=== PATIENT | female | born 1955 | race African-American/Black ===

== ENCOUNTER 2019-07-30 14:07 | Inpatient (IN) | payer MEDICARE ==
[~2019-07-30] VITALS: Ht 165.1 cm; Wt 67.6 kg
[2019-07-30] MEDS ORDERED: ASPIRIN 81MG TABLET PO ONE (14:15)
[2019-07-30 14:36] LABS: MEAN CORPUSCULAR VOLUME 57.6 fL (81.0-99.0); MEAN PLATELET VOLUME 9.2 fl (7.4-10.4); PLATELET 503 x1000/uL (130-400); RED BLOOD CELL COUNT 2.82 mill/uL (4.2-5.4); RED CELL DISTRIBUTION WIDTH 23.7 % (11.6-14.6)
[2019-07-30 14:39] LABS: BG BASE EXCESS -11.3 mmol/L (-2.0-2.0); BG BILEVEL POS AIRWAY PRESSURE 15/5; BG DEOXYHEMOGLOBIN 2.3 % (0.0-5.0); BG FRACTION INSPIRED OXYGEN 50; BG HCO3 ACT 14.5 mmol/L (22.0-26.0); BG METHEMOGLOBIN 0.3 % (0.0-1.5); BG OXYGEN SATURATION 97.7 % (92.0-98.5); BG OXYHEMOGLOBIN 96.4 % (94.0-97.0); BG PH 7.275 (7.350-7.450); BG PO2 114.9 mmHg (75.0-100.0); BG SAMPLE SITE RIGHT BRACHIAL; BG TOTAL HEMOGLOBIN 4.7 g/dL (12.0-18.0); BG VENT MODE MASK - BIPAP
[2019-07-30 14:41] LABS: CHLORIDE 111 mEq/L (98-107); PARTIAL THROMBOPLASTIN TIME 20.4 sec (23.4-31.0); PROTHROMBIN TIME 10.5 sec (9.6-11.0)
[2019-07-30 14:48] LABS: ETHANOL BLOOD < 10 mg/dL
[2019-07-30 14:50] LABS: HEMOGLOBIN. 4.2 g/dL (12.0-16.0)
[2019-07-30 14:51] LABS: HEMATOCRIT. 16.3 % (36.0-48.0)
[2019-07-30 15:27] LABS: NUCLEATED RED BLOOD CELLS 1 /100 WBC; PLATELET ESTIMATE INCREASED
[2019-07-30] MEDS ORDERED: HYDRALAZINE 20MG/ML VIAL IV ONE (17:30)
[2019-07-30 22:00] VITALS: BP 170/95
[2019-07-30] MEDS ORDERED: MAGNESIUM/ALUMINUM HYDROXIDE/SIMETHICONE 30ML UDC PO PRN (22:30)
[2019-07-30] MEDS ORDERED: FUROSEMIDE 40MG/4ML VIAL IVP NR (22:30)
[2019-07-30] MEDS ORDERED: HYDROCODONE/ACETAMINOPHEN 5/325MG TABLET PO PRN (22:30)
[2019-07-30] MEDS ORDERED: GUAIFENESIN 200MG/10ML SUGAR FREE UDC PO PRN (22:30)
[2019-07-30] MEDS ORDERED: DIPHENHYDRAMINE 50MG/ML VIAL IV PRN (22:30)
[2019-07-30] MEDS ORDERED: ACETAMINOPHEN 325MG TABLET PO PRN (22:30)
[2019-07-30] MEDS ORDERED: ACETAMINOPHEN 650MG/20.3ML UDC GT PRN (22:30)
[2019-07-30] MEDS ORDERED: DEXTROSE 50% WATER 50ML SYRINGE IV PRN (22:30)
[2019-07-30] MEDS ORDERED: DOCUSATE SODIUM 100MG CAPSULE PO PRN (22:30)
[2019-07-30] MEDS ORDERED: NA PHOS,M-B/NA PHOS,DI-BA ENEMA 118ML PR PRN (22:30)
[2019-07-30] MEDS ORDERED: ONDANSETRON HCL 4MG/2ML INJ IV PRN (22:30)
[2019-07-30] MEDS ORDERED: ACETAMINOPHEN 650MG SUPP PR PRN (22:30)
[2019-07-30] MEDS ORDERED: NITROGLYCERIN OINT 1GM/INCH UDPKT TD ONE (22:40)
[2019-07-30] MEDS ORDERED: CEFTRIAXONE 1 G PREMIX 50 ML IV SCH (22:45)
[2019-07-30] MEDS ORDERED: AZITHROMYCIN 500 MG in DEXT 5% WATER 250 ML IV SCH (22:45)
[2019-07-30] MEDS: IPRATROPIUM BROMIDE (0.02%) 0.5MG/2.5ML NEB HHN SCH (22:58)
[2019-07-30] MEDS ORDERED: ETOMIDATE 2MG/ML 10ML VIAL IV ONE (23:00)
[2019-07-30] MEDS ORDERED: SUCCINYLCHOLINE CHLORIDE 200MG/10ML IV ONE (23:00)
[2019-07-30 23:01] VITALS: BP 187/113
[2019-07-30] MEDS ORDERED: MIDAZOLAM HCL 2 MG/2 ML VIAL IV NR (23:15)
[2019-07-30] MEDS ORDERED: MIDAZOLAM HCL 2 MG/2 ML VIAL ONE (23:15)
[2019-07-30 23:17] LABS: TOTAL IRON BINDING CAPACITY 423 ug/dL (250-450)
[2019-07-30] MEDS ORDERED: LORAZEPAM 2MG/ML CPJ ONE (23:30)
[2019-07-30] MEDS ORDERED: MIDAZOLAM HCL 5 MG/ML VIAL IV ONE (23:30)
[2019-07-30] MEDS ORDERED: NITROPRUSSIDE 100 MG in DEXT 5% WATER 250 ML IV PRN (23:30)
[2019-07-31] VITALS (91 sets, daily range): BP systolic 76–140; BP diastolic 39–86
[2019-07-31] MEDS ORDERED: SODIUM BICARBONATE 50 MEQ in SODIUM CHLORIDE 0.45% 1,000 ML IV SCH ×2
[2019-07-31] MEDS ORDERED: AZITHROMYCIN 500 MG in DEXT 5% WATER 250 ML IV SCH ×2
[2019-07-31 00:48] LABS: BG BASE EXCESS -9.5 mmol/L (-2.0-2.0); BG CARBOXYHEMOGLOBIN 0.8 % (0.5-1.5); BG DEOXYHEMOGLOBIN 0.3 % (0.0-5.0); BG FRACTION INSPIRED OXYGEN 100; BG HCO3 ACT 17.1 mmol/L (22.0-26.0); BG METHEMOGLOBIN 0.4 % (0.0-1.5); BG OXYGEN SATURATION 99.7 % (92.0-98.5); BG OXYHEMOGLOBIN 98.5 % (94.0-97.0); BG PCO2 41.5 mmHg (35.0-45.0); BG PH 7.234 (7.350-7.450); BG PIP 36 cmH2O; BG PO2 296.4 mmHg (75.0-100.0); BG SAMPLE SITE RIGHT BRACHIAL; BG TIDAL VOLUME(mL) 500 mL; BG TOTAL HEMOGLOBIN 5.8 g/dL (12.0-18.0); BG VENT MODE VENT - A/C; BG VENT RATE 16 set
[2019-07-31] MEDS ORDERED: CEFTRIAXONE 1 G PREMIX 50 ML IV SCH (01:00)
[2019-07-31] MEDS: FENTANYL CITRATE/PF 500 MCG in SODIUM CHLORIDE 0.9% 40 ML IV PRN (01:38)
[2019-07-31] MEDS: MIDAZOLAM HCL 100 MG in DEXT 5% WATER 80 ML IV PRN ×2 (01:39→07:38)
[2019-07-31 02:55] LABS: CLARITY URINE CLOUDY (CLEAR); COLOR URINE YELLOW (YELLOW); KETONES URINE NEGATIVE (NEGATIVE); LEUKOCYTE ESTERASE URINE NEGATIVE (NEGATIVE); NITRITE URINE NEGATIVE (NEGATIVE); OCCULT BLOOD URINE TRACE (NEGATIVE); PROTEIN URINE TRACE (NEGATIVE); SPECIFIC GRAVITY URINE 1.012 (1.005-1.030); UROBILINOGEN URINE 0.2 E.U./dL (0.2-1.0)
[2019-07-31 03:40] LABS: *AMPHETAMINES SCREEN URINE NEGATIVE (NEGATIVE); *BARBITURATES SCREEN URINE NEGATIVE (NEGATIVE); *BENZODIAZEPINES SCREEN URINE PRESUMTIVE POSITIVE (NEGATIVE); *COCAINE SCREEN URINE NEGATIVE (NEGATIVE)
[2019-07-31 03:41] LABS: CANNABINOID URINE SCREEN NEGATIVE (NEGATIVE); METHADONE URINE SCREEN NEGATIVE (NEGATIVE); OPIATES URINE SCREEN NEGATIVE (NEGATIVE); PHENCYCLIDINE URINE SCREEN NEGATIVE (NEGATIVE)
[2019-07-31] MEDS: SODIUM CHLORIDE 0.9% INJ 3ML FLUSH IVF SCH ×3 (06:25→21:17)
[2019-07-31] MEDS: BLOOD SUGAR DIAGNOSTIC STRIP TEST SCH ×4 (06:25→21:31)
[2019-07-31] MEDS: INSULIN LISPRO 100 UNITS/ML SUBCUT SCH ×4 (06:25→21:00)
[2019-07-31 07:45] LABS: BG BASE EXCESS -9.3 mmol/L (-2.0-2.0); BG CARBOXYHEMOGLOBIN 0.6 % (0.5-1.5); BG DEOXYHEMOGLOBIN 1.3 % (0.0-5.0); BG FRACTION INSPIRED OXYGEN 60; BG METHEMOGLOBIN 0.7 % (0.0-1.5); BG OXYGEN SATURATION 98.7 % (92.0-98.5); BG OXYHEMOGLOBIN 97.4 % (94.0-97.0); BG PCO2 32.4 mmHg (35.0-45.0); BG PH 7.312 (7.350-7.450); BG PO2 161.5 mmHg (75.0-100.0); BG SAMPLE SITE RIGHT BRACHIAL; BG TIDAL VOLUME(mL) 500 mL; BG TOTAL HEMOGLOBIN 6.7 g/dL (12.0-18.0); BG VENT MODE VENT - A/C; BG VENT RATE 18 set
[2019-07-31] MEDS: IPRATROPIUM BROMIDE (0.02%) 0.5MG/2.5ML NEB HHN SCH ×3 (08:32→20:08)
[2019-07-31] MEDS ORDERED: FUROSEMIDE 40MG/4ML VIAL IVP SCH (09:00)
[2019-07-31] MEDS: FAMOTIDINE 20MG/2ML VIAL IV SCH (09:07)
[2019-07-31 10:05] LABS: MEAN CORPUSCULAR HEMOGLOBIN 19.5 pg (28.0-32.0); MEAN CORPUSCULAR VOLUME 67.3 fL (81.0-99.0); MEAN PLATELET VOLUME 8.9 fl (7.4-10.4); PLATELET 272 x1000/uL (130-400); RED BLOOD CELL COUNT 3.12 mill/uL (4.2-5.4); RED CELL DISTRIBUTION WIDTH 34.4 % (11.6-14.6)
[2019-07-31 10:12] LABS: CHLORIDE 111 mEq/L (98-107)
[2019-07-31 10:15] LABS: HEMOGLOBIN. 6.1 g/dL (12.0-16.0)
[2019-07-31 10:19] LABS: LDL CHOLESTEROL 61 mg/dL (5-100)
[2019-07-31 10:20] LABS: HDL CHOLESTEROL 33 mg/dL (40-59); T4 FREE 1.37 ng/dL (0.76-1.46)
[2019-07-31] MEDS ORDERED: LIDOCAINE HCL 1% 20ML VIAL (Pyxis) INJ ONE (10:37)
[2019-07-31 10:44] LABS: PLATELET ESTIMATE NORMAL
[2019-07-31] MEDS: DEXT 5%/0.45% NACL 1000ML 1,000 ML IV SCH (11:41)
[2019-07-31] MEDS: PIPERACILLIN/TAZOBACTAM 2.25 G in DEXTROSE 5% WATER 50 ML IV SCH ×3 (12:22→23:41)
[2019-07-31] MEDS ORDERED: VANCOMYCIN 1500MG in DEXTROSE 5% WATER 250ML IV SCH (13:00)
[2019-07-31] MEDS ORDERED: SODIUM BICARBONATE 4% (2.4MEQ) 5ML VIAL IV ONE (13:10)
[2019-07-31] MEDS ORDERED: PHENYLEPHRINE 40 MG in DEXT 5% WATER 246 ML IV PRN (14:15)
[2019-07-31 17:37] LABS: BASOPHILS % 0.1 % (0.0-2.0); EOSINOPHILS % 0.1 % (0.0-5.0); HEMATOCRIT. 23.3 % (36.0-48.0); HEMOGLOBIN. 7.1 g/dL (12.0-16.0); LYMPHOCYTES % 7.8 % (20.0-50.0); MEAN CORPUSCULAR HEMOGLOBIN 21.3 pg (28.0-32.0); MEAN CORPUSCULAR VOLUME 70.4 fL (81.0-99.0); MEAN PLATELET VOLUME 8.9 fl (7.4-10.4); PLATELET 228 x1000/uL (130-400); RED BLOOD CELL COUNT 3.31 mill/uL (4.2-5.4); RED CELL DISTRIBUTION WIDTH 35.9 % (11.6-14.6)
[2019-07-31 17:47] LABS: CHLORIDE 110 mEq/L (98-107)
[2019-07-31 17:56] LABS: CREATINE KINASE 79 IU/L (26-192)
[2019-07-31 17:58] LABS: CREATINE KINASE MB FRACTION 1.6 ng/mL (0.5-3.6); PLATELET ESTIMATE NORMAL
[2019-07-31] MEDS: NITROGLYCERIN 0.1MG/HR PATCH TOP SCH (22:15)
[2019-08-01] VITALS (90 sets, daily range): BP systolic 102–144; BP diastolic 53–82
[2019-08-01 01:43] LABS: CREATINE KINASE 82 IU/L (26-192)
[2019-08-01 01:44] LABS: CREATINE KINASE MB FRACTION < 1.0 ng/mL (0.5-3.6)
[2019-08-01] MEDS ORDERED: NITROPRUSSIDE 100 MG in DEXT 5% WATER 246 ML IV PRN (02:15)
[2019-08-01] MEDS: IPRATROPIUM BROMIDE (0.02%) 0.5MG/2.5ML NEB HHN SCH ×4 (02:17→20:21)
[2019-08-01] MEDS: PIPERACILLIN/TAZOBACTAM 2.25 G in DEXTROSE 5% WATER 50 ML IV SCH ×4 (05:48→23:03)
[2019-08-01] MEDS: SODIUM CHLORIDE 0.9% INJ 3ML FLUSH IVF SCH ×3 (05:48→21:02)
[2019-08-01 05:52] LABS: BASOPHILS % 0.3 % (0.0-2.0); HEMATOCRIT. 22.9 % (36.0-48.0); LYMPHOCYTES % 11.8 % (20.0-50.0); MEAN CORPUSCULAR HEMOGLOBIN 21.6 pg (28.0-32.0); MEAN CORPUSCULAR VOLUME 70.4 fL (81.0-99.0); MONOCYTES % 8.9 % (2.0-8.0); RED BLOOD CELL COUNT 3.25 mill/uL (4.2-5.4)
[2019-08-01 06:06] LABS: CHLORIDE 112 mEq/L (98-107)
[2019-08-01 06:12] LABS: PHOSPHORUS 4.3 mg/dL (2.5-4.9)
[2019-08-01 06:16] LABS: CREATINE KINASE 82 IU/L (26-192)
[2019-08-01 06:18] LABS: CREATINE KINASE MB FRACTION < 1.0 ng/mL (0.5-3.6)
[2019-08-01] MEDS: BLOOD SUGAR DIAGNOSTIC STRIP TEST SCH ×4 (06:30→21:02)
[2019-08-01] MEDS: INSULIN LISPRO 100 UNITS/ML SUBCUT SCH ×4 (07:00→21:00)
[2019-08-01 08:03] LABS: BG BASE EXCESS -4.5 mmol/L (-2.0-2.0); BG CARBOXYHEMOGLOBIN 0.3 % (0.5-1.5); BG DEOXYHEMOGLOBIN 1.3 % (0.0-5.0); BG HCO3 ACT 19.4 mmol/L (22.0-26.0); BG METHEMOGLOBIN 0.3 % (0.0-1.5); BG OXYGEN SATURATION 98.7 % (92.0-98.5); BG OXYHEMOGLOBIN 98.1 % (94.0-97.0); BG PCO2 30.7 mmHg (35.0-45.0); BG PH 7.419 (7.350-7.450); BG SAMPLE SITE RIGHT BRACHIAL; BG TIDAL VOLUME(mL) 500 mL; BG TOTAL HEMOGLOBIN 7.4 g/dL (12.0-18.0); BG VENT MODE VENT - A/C; BG VENT RATE 18 set
[2019-08-01 09:28] LABS: MEAN PLATELET VOLUME 9.1 fl (7.4-10.4); PLATELET 200 x1000/uL (130-400)
[2019-08-01] MEDS: FAMOTIDINE 20MG/2ML VIAL IV SCH (09:37)
[2019-08-01] MEDS: FENTANYL CITRATE/PF 500 MCG in SODIUM CHLORIDE 0.9% 40 ML IV PRN (14:58)
[2019-08-01] MEDS ORDERED: VANCOMYCIN 1 G PREMIX 200 ML IV SCH (15:00)
[2019-08-01] MEDS: DEXT 5%/0.45% NACL 1000ML 1,000 ML IV SCH (18:43)
[2019-08-01 20:57] LABS: CREATINE KINASE 68 IU/L (26-192)
[2019-08-01] MEDS: NITROGLYCERIN 0.1MG/HR PATCH TOP SCH (21:05)
[2019-08-02] VITALS (97 sets, daily range): BP systolic 115–176; BP diastolic 43–103
[2019-08-02] MEDS: IPRATROPIUM BROMIDE (0.02%) 0.5MG/2.5ML NEB HHN SCH ×4 (01:47→20:26)
[2019-08-02] MEDS: INSULIN LISPRO 100 UNITS/ML SUBCUT SCH ×4 (05:12→17:58)
[2019-08-02] MEDS: BLOOD SUGAR DIAGNOSTIC STRIP TEST SCH ×4 (05:12→17:58)
[2019-08-02] MEDS: PIPERACILLIN/TAZOBACTAM 2.25 G in DEXTROSE 5% WATER 50 ML IV SCH ×3 (05:12→17:58)
[2019-08-02] MEDS: SODIUM CHLORIDE 0.9% INJ 3ML FLUSH IVF SCH ×3 (05:12→21:20)
[2019-08-02 05:39] LABS: HEMATOCRIT. 22.5 % (36.0-48.0); MEAN CORPUSCULAR HEMOGLOBIN 21.6 pg (28.0-32.0); MEAN CORPUSCULAR VOLUME 69.8 fL (81.0-99.0); MEAN PLATELET VOLUME 8.6 fl (7.4-10.4); PLATELET 165 x1000/uL (130-400); RED BLOOD CELL COUNT 3.22 mill/uL (4.2-5.4); RED CELL DISTRIBUTION WIDTH 36.5 % (11.6-14.6)
[2019-08-02 05:53] LABS: CHLORIDE 116 mEq/L (98-107)
[2019-08-02 05:59] LABS: PHOSPHORUS 3.3 mg/dL (2.5-4.9)
[2019-08-02 08:28] LABS: BG BASE EXCESS -4.5 mmol/L (-2.0-2.0); BG CARBOXYHEMOGLOBIN 1.1 % (0.5-1.5); BG DEOXYHEMOGLOBIN 1.3 % (0.0-5.0); BG FRACTION INSPIRED OXYGEN 35; BG HCO3 ACT 19.3 mmol/L (22.0-26.0); BG METHEMOGLOBIN 0.7 % (0.0-1.5); BG OXYGEN SATURATION 98.7 % (92.0-98.5); BG OXYHEMOGLOBIN 96.9 % (94.0-97.0); BG PCO2 30.3 mmHg (35.0-45.0); BG PH 7.423 (7.350-7.450); BG PO2 142.1 mmHg (75.0-100.0); BG SAMPLE SITE RIGHT RADIAL; BG TIDAL VOLUME(mL) 500 mL; BG TOTAL HEMOGLOBIN 7.5 g/dL (12.0-18.0); BG VENT MODE VENT - A/C; BG VENT RATE 18 set
[2019-08-02 09:38] LABS: PLATELET ESTIMATE NORMAL
[2019-08-02] MEDS: FAMOTIDINE 20MG/2ML VIAL IV SCH (09:46)
[2019-08-02] MEDS: VANCOMYCIN 1 G PREMIX 200 ML IV SCH (14:10)
[2019-08-02] MEDS ORDERED: POTASSIUM CHLORIDE 20MEQ/PACKET PO NR (16:30)
[2019-08-02] MEDS: FENTANYL CITRATE/PF 500 MCG in SODIUM CHLORIDE 0.9% 40 ML IV PRN (17:59)
[2019-08-02] MEDS: NITROGLYCERIN 0.1MG/HR PATCH TOP SCH (21:19)
[2019-08-03] VITALS (98 sets, daily range): BP systolic 125–174; BP diastolic 66–125
[2019-08-03] MEDS: PIPERACILLIN/TAZOBACTAM 2.25 G in DEXTROSE 5% WATER 50 ML IV SCH ×4 (00:32→17:18)
[2019-08-03] MEDS: INSULIN LISPRO 100 UNITS/ML SUBCUT SCH ×4 (00:33→17:15)
[2019-08-03] MEDS: BLOOD SUGAR DIAGNOSTIC STRIP TEST SCH ×4 (00:33→17:14)
[2019-08-03] MEDS: IPRATROPIUM BROMIDE (0.02%) 0.5MG/2.5ML NEB HHN SCH ×4 (01:54→20:59)
[2019-08-03] MEDS: DEXT 5%/0.45% NACL 1000ML 1,000 ML IV SCH (01:56)
[2019-08-03] MEDS: SODIUM CHLORIDE 0.9% INJ 3ML FLUSH IVF SCH ×3 (05:30→21:06)
[2019-08-03] MEDS: FAMOTIDINE 20MG/2ML VIAL IV SCH (08:22)
[2019-08-03 08:23] LABS: BG CARBOXYHEMOGLOBIN 0.2 % (0.5-1.5); BG DEOXYHEMOGLOBIN 1.6 % (0.0-5.0); BG FRACTION INSPIRED OXYGEN 35; BG HCO3 ACT 21.4 mmol/L (22.0-26.0); BG METHEMOGLOBIN 0.6 % (0.0-1.5); BG OXYGEN SATURATION 98.4 % (92.0-98.5); BG OXYHEMOGLOBIN 97.6 % (94.0-97.0); BG PCO2 35.3 mmHg (35.0-45.0); BG PH 7.401 (7.350-7.450); BG PO2 132.2 mmHg (75.0-100.0); BG PRESSURE SUPPORT 12; BG SAMPLE SITE RIGHT RADIAL; BG TIDAL VOLUME(mL) 500 mL; BG TOTAL HEMOGLOBIN 8.2 g/dL (12.0-18.0); BG VENT MODE VENT - SIMV; BG VENT RATE 8 set
[2019-08-03] MEDS ORDERED: POTASSIUM CHLORIDE 20MEQ/PACKET PO SCH (08:30)
[2019-08-03] MEDS ORDERED: AMLODIPINE 2.5MG TABLET PO SCH (09:00)
[2019-08-03] MEDS: VANCOMYCIN 1 G PREMIX 200 ML IV SCH (13:33)
[2019-08-03] MEDS: CLONIDINE 0.1MG TABLET PO PRN (16:16)
[2019-08-03] MEDS: FENTANYL CITRATE/PF 500 MCG in SODIUM CHLORIDE 0.9% 40 ML IV PRN (16:25)
[2019-08-03] MEDS: NITROGLYCERIN 0.1MG/HR PATCH TOP SCH (21:09)
[2019-08-04] VITALS (54 sets, daily range): BP systolic 133–169; BP diastolic 70–106
[2019-08-04] MEDS: BLOOD SUGAR DIAGNOSTIC STRIP TEST SCH ×6 (00:09→20:53)
[2019-08-04] MEDS: PIPERACILLIN/TAZOBACTAM 2.25 G in DEXTROSE 5% WATER 50 ML IV SCH ×4 (00:15→18:46)
[2019-08-04] MEDS: IPRATROPIUM BROMIDE (0.02%) 0.5MG/2.5ML NEB HHN SCH ×4 (02:15→20:23)
[2019-08-04] MEDS: CLONIDINE 0.1MG TABLET PO PRN (03:54)
[2019-08-04 05:30] LABS: CHLORIDE 122 mEq/L (98-107)
[2019-08-04 05:33] LABS: HEMATOCRIT. 25.9 % (36.0-48.0); HEMOGLOBIN. 7.7 g/dL (12.0-16.0); MEAN CORPUSCULAR HEMOGLOBIN 21.6 pg (28.0-32.0); MEAN CORPUSCULAR VOLUME 72.9 fL (81.0-99.0); MEAN PLATELET VOLUME 8.6 fl (7.4-10.4); PLATELET 132 x1000/uL (130-400); RED BLOOD CELL COUNT 3.55 mill/uL (4.2-5.4); RED CELL DISTRIBUTION WIDTH 37.1 % (11.6-14.6)
[2019-08-04 05:36] LABS: PHOSPHORUS 2.6 mg/dL (2.5-4.9)
[2019-08-04] MEDS: INSULIN LISPRO 100 UNITS/ML SUBCUT SCH ×6 (06:00→20:53)
[2019-08-04] MEDS: SODIUM CHLORIDE 0.9% INJ 3ML FLUSH IVF SCH ×3 (06:09→21:16)
[2019-08-04] MEDS: FENTANYL CITRATE/PF 500 MCG in SODIUM CHLORIDE 0.9% 40 ML IV PRN (06:55)
[2019-08-04] MEDS: FAMOTIDINE 20MG/2ML VIAL IV SCH (09:00)
[2019-08-04] MEDS: AMLODIPINE 2.5MG TABLET PO SCH (09:09)
[2019-08-04] MEDS: DEXTROSE 5% WATER 1,000 ML IV SCH (09:10)
[2019-08-04 09:52] LABS: BG CARBOXYHEMOGLOBIN 0.1 % (0.5-1.5); BG DEOXYHEMOGLOBIN 2.3 % (0.0-5.0); BG FRACTION INSPIRED OXYGEN 30; BG HCO3 ACT 24.4 mmol/L (22.0-26.0); BG METHEMOGLOBIN 0.5 % (0.0-1.5); BG OXYGEN SATURATION 97.7 % (92.0-98.5); BG OXYHEMOGLOBIN 97.1 % (94.0-97.0); BG PH 7.415 (7.350-7.450); BG PRESSURE SUPPORT 8; BG SAMPLE SITE RIGHT RADIAL; BG TOTAL HEMOGLOBIN 8.5 g/dL (12.0-18.0); BG VENT MODE VENT - CPAP
[2019-08-04] MEDS: VANCOMYCIN 1 G PREMIX 200 ML IV SCH (11:52)
[2019-08-04 13:46] LABS: PLATELET ESTIMATE NORMAL
[2019-08-04] MEDS ORDERED: DEXTROSE 50% WATER 50ML SYRINGE IV PRN (18:15)
[2019-08-05] VITALS (21 sets, daily range): BP systolic 120–164; BP diastolic 50–106
[2019-08-05] MEDS: PIPERACILLIN/TAZOBACTAM 2.25 G in DEXTROSE 5% WATER 50 ML IV SCH ×5 (00:13→23:06)
[2019-08-05] MEDS: IPRATROPIUM BROMIDE (0.02%) 0.5MG/2.5ML NEB HHN SCH ×4 (01:54→20:31)
[2019-08-05 05:26] LABS: BASOPHILS % 0.8 % (0.0-2.0); EOSINOPHILS % 4.3 % (0.0-5.0); HEMATOCRIT. 23.9 % (36.0-48.0); HEMOGLOBIN. 7.2 g/dL (12.0-16.0); LYMPHOCYTES % 12.1 % (20.0-50.0); MEAN CORPUSCULAR HEMOGLOBIN 21.7 pg (28.0-32.0); MEAN CORPUSCULAR VOLUME 71.6 fL (81.0-99.0); MEAN PLATELET VOLUME 8.7 fl (7.4-10.4); MONOCYTES % 10.1 % (2.0-8.0); NEUTROPHILS % 72.7 % (40.0-76.0); PLATELET 108 x1000/uL (130-400); RED BLOOD CELL COUNT 3.33 mill/uL (4.2-5.4); RED CELL DISTRIBUTION WIDTH 37.2 % (11.6-14.6)
[2019-08-05] MEDS: SODIUM CHLORIDE 0.9% INJ 3ML FLUSH IVF SCH ×3 (05:26→21:48)
[2019-08-05] MEDS: DEXTROSE 5% WATER 1,000 ML IV SCH ×2 (05:37→18:13)
[2019-08-05 05:38] LABS: CHLORIDE 113 mEq/L (98-107)
[2019-08-05 05:50] LABS: PHOSPHORUS 2.5 mg/dL (2.5-4.9)
[2019-08-05] MEDS: INSULIN LISPRO 100 UNITS/ML SUBCUT SCH (06:07)
[2019-08-05] MEDS: BLOOD SUGAR DIAGNOSTIC STRIP TEST SCH (06:07)
[2019-08-05] MEDS: VANCOMYCIN 1 G PREMIX 200 ML IV SCH (06:13)
[2019-08-05] MEDS: AMLODIPINE 2.5MG TABLET PO SCH (08:30)
[2019-08-05] MEDS: FAMOTIDINE 20MG/2ML VIAL IV SCH (08:30)
[2019-08-05] MEDS ORDERED: DILTIAZEM HCL 300MG CAPSULE SR 24HR PO SCH (09:00)
[2019-08-05] MEDS: FAMOTIDINE 20MG TABLET PO SCH (20:39)
[2019-08-05] MEDS: CLONIDINE 0.1MG TABLET PO PRN (20:39)
[2019-08-06] VITALS: BP 133/79
[2019-08-06] MEDS: VANCOMYCIN 1 G PREMIX 200 ML IV SCH (00:42)
[2019-08-06] MEDS: IPRATROPIUM BROMIDE (0.02%) 0.5MG/2.5ML NEB HHN SCH ×4 (02:42→20:07)
[2019-08-06 04:00] VITALS: BP 128/77
[2019-08-06] MEDS: PIPERACILLIN/TAZOBACTAM 2.25 G in DEXTROSE 5% WATER 50 ML IV SCH ×4 (05:39→23:13)
[2019-08-06] MEDS: SODIUM CHLORIDE 0.9% INJ 3ML FLUSH IVF SCH ×3 (05:40→22:00)
[2019-08-06 08:00] VITALS: BP 157/85
[2019-08-06] MEDS: DILTIAZEM HCL 180MG CAPSULE CD 24HR PO SCH (08:45)
[2019-08-06 12:00] VITALS: BP 134/78
[2019-08-06 13:06] LABS: CHLORIDE 110 mEq/L (98-107)
[2019-08-06 13:09] LABS: BASOPHILS % 0.9 % (0.0-2.0); EOSINOPHILS % 4.8 % (0.0-5.0); LYMPHOCYTES % 14.7 % (20.0-50.0); MEAN CORPUSCULAR HEMOGLOBIN 21.7 pg (28.0-32.0); MEAN CORPUSCULAR VOLUME 70.8 fL (81.0-99.0); MEAN PLATELET VOLUME 8.7 fl (7.4-10.4); MONOCYTES % 8.2 % (2.0-8.0); NEUTROPHILS % 71.4 % (40.0-76.0); PLATELET 123 x1000/uL (130-400); RED BLOOD CELL COUNT 3.92 mill/uL (4.2-5.4); RED CELL DISTRIBUTION WIDTH 37.4 % (11.6-14.6)
[2019-08-06 13:10] LABS: HEMATOCRIT. 27.8 % (36.0-48.0); HEMOGLOBIN. 8.5 g/dL (12.0-16.0)
[2019-08-06] MEDS: DEXTROSE 5% WATER 1,000 ML IV SCH (15:17)
[2019-08-06 16:00] VITALS: BP 160/84
[2019-08-06] MEDS: CLONIDINE 0.1MG TABLET PO PRN (17:56)
[2019-08-06 20:00] VITALS: BP 123/72
[2019-08-06] MEDS: FAMOTIDINE 20MG TABLET PO SCH (20:17)
[2019-08-07] VITALS: BP 142/80
[2019-08-07] MEDS: IPRATROPIUM BROMIDE (0.02%) 0.5MG/2.5ML NEB HHN SCH ×4 (02:29→21:29)
[2019-08-07 04:00] VITALS: BP 138/75
[2019-08-07] MEDS: PIPERACILLIN/TAZOBACTAM 2.25 G in DEXTROSE 5% WATER 50 ML IV SCH (05:31)
[2019-08-07] MEDS: SODIUM CHLORIDE 0.9% INJ 3ML FLUSH IVF SCH ×3 (05:31→21:52)
[2019-08-07 06:52] LABS: HEMOGLOBIN. 8.3 g/dL (12.0-16.0); MEAN CORPUSCULAR VOLUME 71.7 fL (81.0-99.0); PLATELET 120 x1000/uL (130-400); RED BLOOD CELL COUNT 3.76 mill/uL (4.2-5.4); RED CELL DISTRIBUTION WIDTH 37.1 % (11.6-14.6)
[2019-08-07 08:00] VITALS: BP 154/90
[2019-08-07 08:23] LABS: PLATELET ESTIMATE DECREASED
[2019-08-07] MEDS: DILTIAZEM HCL 180MG CAPSULE CD 24HR PO SCH (09:12)
[2019-08-07] MEDS ORDERED: SODIUM CHLORIDE 0.45% 1,000 ML IV SCH (09:15)
[2019-08-07 12:00] VITALS: BP 156/82
[2019-08-07] MEDS: SODIUM CHL 0.45% + KCL 20MEQ/L 1,000 ML IV SCH ×2 (13:05→21:53)
[2019-08-07] MEDS: CEPHALEXIN 250MG CAPSULE PO SCH ×2 (13:07→17:43)
[2019-08-07 16:00] VITALS: BP 146/80
[2019-08-07 17:33] LABS: CLARITY URINE CLEAR (CLEAR); COLOR URINE YELLOW (YELLOW); KETONES URINE NEGATIVE (NEGATIVE); LEUKOCYTE ESTERASE URINE NEGATIVE (NEGATIVE); NITRITE URINE NEGATIVE (NEGATIVE); OCCULT BLOOD URINE 1+ (NEGATIVE); PROTEIN URINE NEGATIVE (NEGATIVE); SPECIFIC GRAVITY URINE 1.003 (1.005-1.030); UROBILINOGEN URINE 0.2 E.U./dL (0.2-1.0)
[2019-08-07] MEDS: FAMOTIDINE 20MG TABLET PO SCH (21:52)
[2019-08-08] MEDS: CEPHALEXIN 250MG CAPSULE PO SCH ×5 (01:07→23:05)
[2019-08-08] MEDS: IPRATROPIUM BROMIDE (0.02%) 0.5MG/2.5ML NEB HHN SCH ×4 (02:52→22:30)
[2019-08-08] MEDS: SODIUM CHLORIDE 0.9% INJ 3ML FLUSH IVF SCH ×3 (06:17→21:25)
[2019-08-08 07:35] LABS: CHLORIDE 112 mEq/L (98-107)
[2019-08-08 07:44] LABS: HEMATOCRIT. 26.7 % (36.0-48.0); HEMOGLOBIN. 7.9 g/dL (12.0-16.0); MEAN CORPUSCULAR HEMOGLOBIN 21.6 pg (28.0-32.0); MEAN CORPUSCULAR VOLUME 72.7 fL (81.0-99.0); MEAN PLATELET VOLUME 8.8 fl (7.4-10.4); PHOSPHORUS 2.7 mg/dL (2.5-4.9); PLATELET 155 x1000/uL (130-400); RED BLOOD CELL COUNT 3.67 mill/uL (4.2-5.4); RED CELL DISTRIBUTION WIDTH 37.3 % (11.6-14.6)
[2019-08-08 08:00] VITALS: BP 131/85
[2019-08-08] MEDS: SODIUM CHL 0.45% + KCL 20MEQ/L 1,000 ML IV SCH ×2 (09:34→15:28)
[2019-08-08] MEDS: DILTIAZEM HCL 180MG CAPSULE CD 24HR PO SCH (09:35)
[2019-08-08 12:00] VITALS: BP 156/92
[2019-08-08 12:23] LABS: PLATELET ESTIMATE NORMAL
[2019-08-08 16:00] VITALS: BP 143/79
[2019-08-08 20:00] VITALS: BP 150/91
[2019-08-08] MEDS: FAMOTIDINE 20MG TABLET PO SCH (21:25)
[2019-08-09] VITALS: BP 135/85
[2019-08-09] MEDS: SODIUM CHL 0.45% + KCL 20MEQ/L 1,000 ML IV SCH (00:42)
[2019-08-09] MEDS: IPRATROPIUM BROMIDE (0.02%) 0.5MG/2.5ML NEB HHN SCH ×2 (04:03→08:40)
[2019-08-09] MEDS: SODIUM CHLORIDE 0.9% INJ 3ML FLUSH IVF SCH (05:10)
[2019-08-09] MEDS: CEPHALEXIN 250MG CAPSULE PO SCH (05:11)
[2019-08-09 08:00] VITALS: BP 181/88
[2019-08-09] MEDS: DILTIAZEM HCL 180MG CAPSULE CD 24HR PO SCH (08:05)
[2019-08-09] MEDS ORDERED: CEPH250C2 PO (08:14)
[2019-08-09] MEDS ORDERED: DILT180C66 PO (08:14)
[2019-08-09 08:39] VITALS: BP 181/88
[2019-08-28] MEDS ORDERED: SODIUM BICARBONATE 50 MEQ in SODIUM CHLORIDE 0.45% 1,000 ML IV SCH ×2
== END 2019-08-09 11:07 | disposition home or self-care (01) | DRG 870 ==
LOC: ER 14:07 → 5EST 17:55 → EDBEDREQSVC 18:02 → ENRESERV 20:07 → MICUNO 23:25 → 5WST 08-05 16:35
PROVIDERS: ADMIT Family Medicine; ATTEND Family Medicine
PROC: 5A1955Z Respiratory Ventilation, Greater than 96 Consecutive Hours (ICD-10-PCS; 2019-07-30)
PROC: 0BH17EZ Insertion of Endotracheal Airway into Trachea, Via Natural or Artificial Opening (ICD-10-PCS; 2019-07-30)
PROC: 30233N1 Transfusion of Nonautologous Red Blood Cells into Peripheral Vein, Percutaneous Approach (ICD-10-PCS; 2019-07-30)
PROC: B54NZZA Ultrasonography of Left Upper Extremity Veins, Guidance (ICD-10-PCS; principal; 2019-07-31)
PROC: 05HY33Z Insertion of Infusion Device into Upper Vein, Percutaneous Approach (ICD-10-PCS; 2019-07-31)
PROC: 0W993ZZ Drainage of Right Pleural Cavity, Percutaneous Approach (ICD-10-PCS; 2019-07-31)
DX: A41.9 Sepsis, unspecified organism (principal); J18.9 Pneumonia, unspecified organism; J96.01 Acute respiratory failure with hypoxia; N17.0 Acute kidney failure with tubular necrosis; I50.33 Acute on chronic diastolic (congestive) heart failure; E44.1 Mild protein-calorie malnutrition; I13.0 Hypertensive heart and chronic kidney disease with heart failure and stage 1 through stage 4 chronic kidney disease, or unspecified chronic kidney disease; E87.2 Acidosis; R18.8 Other ascites; E87.0 Hyperosmolality and hypernatremia; C56.9 Malignant neoplasm of unspecified ovary; D50.9 Iron deficiency anemia, unspecified; E11.22 Type 2 diabetes mellitus with diabetic chronic kidney disease; E11.65 Type 2 diabetes mellitus with hyperglycemia; N18.9 Chronic kidney disease, unspecified; K80.20 Calculus of gallbladder without cholecystitis without obstruction; E87.6 Hypokalemia; D25.9 Leiomyoma of uterus, unspecified; Z82.49 Family history of ischemic heart disease and other diseases of the circulatory system; Z68.24 Body mass index [BMI] 24.0-24.9, adult; Z79.899 Other long term (current) drug therapy
CPT/HCPCS: 32555; 36415; 36600; 71045; 71250; 74176; 76770; 76856; 76937; 80048; 80061; 80202; 80305; 80320; 81003; 82040; 82105; 82140; 82270; 82330; 82375; 82378; 82550; 82553; 82805; 82962; 83036; 83540; 83550; 83605; 83615; 83735; 83880; 84100; 84439; 84443; 84484; 84550; 84702; 85379; 86304; 86850; 86900; 86920; 88108; 88312; 92610; 93005; 93306; 93970; 94002; 94003; 94640; 94660; 96365; 97116; 97162; 99291; C1725; J0330; J0360; J0456; J0696; J1940; J2060; J2250; J2543; J3010; J3370; J3480; J3490; J7060; J7070; P9016; A4315; G0480